=== PATIENT | male | born 1980 | race Caucasian/White ===

== ENCOUNTER → 2020-07-15 | Outpatient (CLI) | payer OTHER ==
[~2020-07-15] MED LIST: 0.9 % SODIUM CHLORIDE 10 ML DISP.SYRIN. ID ONE; GADOTERATE 5 MMOL/10ML VIAL. INT ART ONE; IOHEXOL 300 MG/ML 50 ML VIAL. INT ART ONE; LIDOCAINE 1% Multi-Dose 20 ML VIAL. ID ONE
--- NOTE | 2020-07-15 16:33 | KCIC ---
Examination: Left Shoulder Arthrogram: Indications: Left shoulder pain. Procedure: Risks, benefits and complications including bleeding, infection, blood vessel damage or joint infection were discussed with the patient. Questions were answered and consent form signed. The patient was placed supine on the fluoroscopy table with the shoulder slightly externally rotated. Bony landmarks were used to plan for fluoroscopic injection. The patient was carefully prepped and draped in a sterile fashion. Using fluoroscopic guidance, local anesthetic and a 22 gauge needle the joint space was entered. Intra-articular location was confirmed as approximately 12cc of a mixture of 5 mL of Omnipaque 300, 5 mL of lidocaine, 10 mL of saline and 0.1 mL of clariscan was given. The procedure was well tolerated and the patient was sent to MRI. No immediate complications. Total fluoroscopic time 24 seconds. Total fluoroscopic images 1. Impression: Status post fluoroscopic guided arthrogram in preparation for MRI . Electronically signed by: David Chakraborty MD (07/15/2020 4:30 PM) [id number]
--- NOTE | 2020-07-16 08:49 | KCIC ---
Examination: MR arthrogram left shoulder HISTORY: History of left shoulder pain, limited range of motion COMPARISON: None TECHNIQUE: Multiplanar, multisequence MR imaging of the left shoulder performed after arthrogram injection FINDINGS: The long head of the biceps tendon within the bicipital groove. The attachment of the long head the biceps tendon to the superior labral anchor grossly appears intact. Small low intensity focus measuring 6 mm identified in the biceps tendon sheath could be a small loose body or synovial prominence. The attachment of the subscapularis, supraspinatus, infraspinatus tendon grossly appears intact. Somewhat attenuated appearance of the anterior superior labrum. There is faint increased T2 signal identified superior labrum extending anteroposteriorly could be a small SLAP tear. There is questionable subtle increased T2 signal identified in the posterior inferior labrum best seen on series 3 image 17 could be a subtle labral tear. Anatomical variant of Type III anterior capsular insertion. No obvious large labral tear is evident. Mild degenerative changes acromioclavicular joint. The acromion is type I. The muscle bulk grossly appears unremarkable. IMPRESSION: 1. Small low intensity focus measuring 6 mm identified in the biceps tendon sheath could be a small loose body or synovial prominence. 2. Attenuated appearance of the anterior superior labrum. There is faint increased T2 signal identified superior labrum extending anteroposteriorly could be a small SLAP tear. There is questionable subtle increased T2 signal identified in the posterior inferior labrum best seen on series 3 image 17 could be a subtle labral tear. Electronically signed by: David Chakraborty MD (07/16/2020 8:45 AM) [place] [id number]
== END ==
LOC: KCIC 14:17
PROVIDERS: ATTEND Family Medicine
DX: M25.512 Pain in left shoulder (principal)
CPT/HCPCS: 23350; 73222; 77002; A9575; J3490; Q9967; 73040